=== PATIENT | female | born 1985 | race Caucasian/White ===

== ENCOUNTER → 2016-12-25 | Outpatient (CLI) | payer BC ==
[~2016-12-25] MED LIST: PRENTAB26 PO
--- NOTE | 2016-12-25 14:25 | DIAGNOSTIC IMAGING REPORT ---
ABDOMINAL ULTRASOUND TO ASSESS FOR HERNIA CLINICAL HISTORY: DIASTASIS OF RECTI ABDOMINAL MUSCLE COMPARISON STUDY: No previous studies for comparison. FINDINGS: Sonography of the anterior abdominal wall was performed. Note was made of separation of the rectus abdominis muscles by approximately 4 cm within the midline. This suggests diastases recti. At the level of separation, the anterior abdominal wall was thin but likely intact. No definite hernia was identified. IMPRESSION: Separation of the rectus abdominous muscles suggestive of diastases recti. At the level of separation, the anterior abdominal wall was thin but likely intact. No definite hernia. Electronically signed by: Mir Duggan M.D. 12/25/2016 2:23 PM Dictated Date/Time: 12/25/2016 2:19 PM
== END | disposition home or self-care (01) ==
LOC: C.ULTRBC 13:51
PROVIDERS: ATTEND Obstetrics & Gynecology
DX: M62.89 Other specified disorders of muscle (principal); Z87.59 Personal history of other complications of pregnancy, childbirth and the puerperium